=== PATIENT | male | born 1985 | race African-American/Black ===

== ENCOUNTER 2024-03-06 17:52 | Emergency (ER) | payer MEDICAID ==
[~2024-03-06] VITALS: Ht 195.6 cm; Wt 129.3 kg
[2024-03-06 18:32] VITALS: BP_SYST 147; PULSE 63; RESP 16; TEMP 98.1; O2SAT 98
[2024-03-06 19:57] VITALS: BP_SYST 147; PULSE 63; TEMP 98.1; O2SAT 98
[2024-03-06] MEDS: KETOROLAC TROMETHAMINE 30 MG VIAL IM ONE (20:39)
[2024-03-06] MEDS ORDERED: ACET-2634 PO (20:57)
[2024-03-06] MEDS ORDERED: IBUP-1969 PO (20:57)
[2024-03-06 21:00] VITALS: RESP 18
== END 2024-03-06 21:00 | disposition home or self-care (01) ==
LOC: SED 17:52
DX: S93.602A Unspecified sprain of left foot, initial encounter (principal); Z91.013 Allergy to seafood; W21.05XA Struck by basketball, initial encounter; Y93.67 Activity, basketball; Y92.89 Other specified places as the place of occurrence of the external cause; Y99.8 Other external cause status
CPT/HCPCS: 99283; 73630; 96372; J1885